=== PATIENT | male | born 1985 ===

== ENCOUNTER 2020-11-30 14:23 | Emergency (ER) | payer SELFPAY ==
[2020-11-30 16:28] VITALS: BP 123/77
--- NOTE | 2020-11-30 16:40 | Emergency Department Report ---
HPI - General Chief Complaint: Extremity Injury, Lower Time Seen by Provider: 11/30/20 16:35 - HPI HPI: 35-year-old -[place] male presents to the emergency department with a complaint of a 3-day history of right foot pain that is "inside my foot", as the patient points to the bottom of his foot. Patient also says he has some swelling towards the inside of the right foot and the ankle, but denies any rash, bruising, skin color change. The patient denies any obvious trauma or inciting event. He says [place] feet all day. The pain mostly occurs when the patient is walking or bearing weight on the foot. He has not taken anything for symptoms prior to presentation today. ED Past Medical Hx - Past Medical History Previous Medical History?: No - Surgical History Past Surgical History?: No - Social History Smoking Status: Never Smoker Substance Use Type: None - Medications Home Medications: Home Medications Medication Instructions Recorded Confirmed Last Taken Type Ibuprofen [Motrin 800 MG tab] 800 mg PO Q8HR PRN #20 tablet 11/30/20 Unknown Rx ED Review of Systems ROS: Stated complaint: RT FOOT INJURY Other details as noted in HPI Comment: All other systems reviewed and negative Constitutional: denies: chills, fever Respiratory: denies: cough, shortness of breath Cardiovascular: denies: chest pain, palpitations Musculoskeletal: joint swelling, arthralgia. denies: back pain Skin: denies: rash, change in color Neurological: denies: numbness, paresthesias Physical Exam - Physical Exam Vital Signs: Vital Signs 11/30/20 16:24 Temperature 98.7 F Pulse Rate 72 Blood Pressure 123/77 Physical Exam: GENERAL: The patient is well-developed well-nourished. HENT: Normocephalic. Atraumatic. Patient has moist mucous membranes. EYES: Extraocular motions are intact. NECK: Supple. Trachea is midline. SKIN: Skin is warm and dry. Nonpitting swelling of the generalized right foot, worst at the medial right midfoot. No erythema, ecchymosis, rash or lesions. NEURO: The patient is awake, alert, and oriented. The patient is cooperative. The patient has no focal neurologic deficits. Normal speech. MUSCULOSKELETAL: There is some tenderness to palpation along the midline right plantar foot, worst over the heel and midfoot. Dorsalis pedis pulse +2/4. Capillary refill less than 2 seconds. ED Course Vital Signs 11/30/20 16:24 Temperature 98.7 F Pulse Rate 72 Blood Pressure 123/77 ED Medical Decision Making - Radiology Data Radiology results: image reviewed interpreted by me: X-ray of the right foot does not show any fracture, dislocation, signs of osteomyelitis or gas subcutaneously. There is a heel spur. - Medical Decision Making Patient presents with a 3-day history of seemingly atraumatic right foot pain and swelling. Pain is mostly to the plantar portion of the foot towards the heel and midfoot. There is some generalized nonpitting swelling without any erythema, ecchymosis, rash or lesion. X-ray shows a heel spur, but otherwise no fracture, dislocation, osteomyelitis, subcutaneous gas. This all appears consi stent with plantar fasciitis with some possible tendinitis. The patient will be discharged home on anti-inflammatories and has been given an outpatient referral for podiatry. Critical Care Time: No Critical care attestation.: If time is entered above; I have spent that time in minutes in the direct care of this critically ill patient, excluding procedure time. ED Disposition Clinical Impression: Left foot pain, Plantar fasciitis of left foot Disposition: HOME / SELF CARE / HOMELESS Is pt being admited?: No Condition: Stable Instructions: Plantar Fasciitis, Foot Pain Additional Instructions: Please follow-up with a primary care physician in the next few days. I am giving you a referral for a local print traffic manager, Dr. Avila, to follow-up regarding your foot pain and suspected plantar fasciitis. Return to the emergency department with any worsening of your symptoms, new or concerning symptoms not addressed during this current emergency department visit, or with any acute distress. Prescriptions: Ibuprofen [Motrin 800 MG tab] 800 mg PO Q8HR PRN #20 tablet PRN Reason: Pain , Severe (7-10) Referrals: KIKO AVILA DPM [Staff Physician] - 3-5 Days Time of Disposition: 17:09
--- NOTE | 2020-11-30 17:09 | XRay Report ---
RIGHT FOOT 3 VIEWS 1712 INDICATION: Foot pain without injury, pain in arch worse after sitting, mild edema COMPARISON: None available. FINDINGS: Diffuse soft tissue edema is seen in the foot which is most prominent distally and ventrall y. No soft tissue gas is seen and no foreign bodies are detected. No fractures or dislocations are se en. Moderate posterior calcaneal spurring is noted. Mild tarsal degenerative changes are seen. No obv ious bony erosions are noted. Signer Name: Peter Perales MD Signed: 11/30/2020 5:04 PM Workstation Name: [id number]
== END 2020-11-30 17:18 | disposition home or self-care (01) ==
LOC: ED 14:23
DX: M72.2 Plantar fascial fibromatosis (principal); Z91.018 Allergy to other foods; Z79.899 Other long term (current) drug therapy
CPT/HCPCS: 99283